=== PATIENT | male | born 1990 | race Caucasian/White ===

== ENCOUNTER 2020-10-11 14:08 | Emergency (ER) | payer MEDICAID, OTHER ==
[~2020-10-11] VITALS: Ht 188 cm; Wt 113.6 kg
[~2020-10-11 14:08] MED LIST: ERGO400T7 PO; GABA300C PO; HALO5TAB2 PO; TOPI100T37 PO; TRAZ150 PO; TRIH2TAB3 PO; ZOLP-280 PO
[2020-10-11 17:20] LABS: BASOPHILS % (AUTO) 0.5 % (0.0-2.0); EOSINOPHILS % (AUTO) 0.9 % (1.0-6.0); HEMATOCRIT 47.5 % (41-53); HEMOGLOBIN 15.4 g/dL (13.5-17.5); LYMPHOCYTES # (AUTO) 2.2 K/uL (1.0-4.8); LYMPHOCYTES % (AUTO) 29.4 % (22.0-44.0); MEAN CORPUSCULAR HEMOGLOBIN 30.6 pg (26.0-34.0); MEAN CORPUSCULAR HGB CONC 32.4 G/dL (31.0-37.0); MEAN CORPUSCULAR VOLUME 94 fL (80-100); MONOCYTES # (AUTO) 0.5 K/uL (0.1-1.0); MONOCYTES % (AUTO) 6.8 % (2.0-9.0); NEUTROPHILS # (AUTO) 4.7 K/uL (1.8-7.7); NEUTROPHILS % (AUTO) 62.4 % (40.0-70.0); PLATELET COUNT (AUTO) 183 K/uL (150-450); RED BLOOD CELL COUNT(AUTO) 5.03 MIL/uL (4.50-5.90); RED CELL DISTRIBUTION WIDTH 14.6 % (11.5-14.5)
[2020-10-11 17:30] LABS: ANION GAP 12 mmol/L (8-16); CALCIUM, TOTAL 9.2 mg/dL (8.8-10.5); CARBON DIOXIDE 24 mmol/L (22-29); CHLORIDE 108 mmol/L (98-107); CREATININE 1.34 mg/dL (0.60-1.30); GLOMERULAR FILTR. RATE CALC > 60 mL/min (>60); GLUCOSE,RANDOM 124 mg/dL (70-110); POTASSIUM 3.7 mmol/L (3.5-5.1); SODIUM SERUM 144 mmol/L (136-145); UREA NITROGEN, BLOOD 10 mg/dL (7-18)
[2020-10-11 17:35] LABS: ALANINE AMINOTRANSFERASE 41 U/L (12-78); ALBUMIN 3.8 g/dL (3.4-5.0); ALKALINE PHOSPHATASE 117 U/L (46-116); ASPARTATE AMINOTRANSFERASE 16 U/L (15-37); BILIRUBIN,TOTAL 0.6 mg/dL (0.1-1.0)
[2020-10-11] MEDS ORDERED: ERGO400T7 PO (18:24)
[2020-10-11] MEDS ORDERED: DiphenhydrAMINE HCL 25 MG CAPSULE PO ONE (18:30)
[2020-10-11] MEDS ORDERED: HALOPERIDOL 5 MG TABLET PO ONE ×2 (18:30)
[2020-10-11] MEDS ORDERED: LORazepam 2 MG/ML VIAL IM ONE (18:30)
[2020-10-11 19:35] VITALS: BP 124/85
[2020-10-11] MEDS ORDERED: TRAZ-257 PO (20:28)
[2020-10-11] MEDS ORDERED: LORA-1000 PO (20:29)
[2020-10-11] MEDS ORDERED: CHLO100T31 PO (20:31)
== END 2020-10-11 20:40 | disposition home or self-care (01) ==
LOC: EMS 14:22
DX: F69 Unspecified disorder of adult personality and behavior (principal); R44.0 Auditory hallucinations; F31.9 Bipolar disorder, unspecified; E11.9 Type 2 diabetes mellitus without complications; I10 Essential (primary) hypertension
CPT/HCPCS: 80053; 85025; 96372; 99284; G0480; J2060

== ENCOUNTER 2020-10-22 19:13 | Emergency (ER) | payer OTHER ==
[~2020-10-22] VITALS: Ht 188 cm; Wt 114.0 kg
[~2020-10-22 19:13] MED LIST changes: +CHLO100T31 PO; +LORA-1000 PO; +TRAZ-257 PO
[2020-10-22] MEDS ORDERED: HALOPERIDOL 5 MG TABLET PO ONE (21:00)
[2020-10-22 22:00] VITALS: BP 117/85
== END 2020-10-22 22:25 | disposition home or self-care (01) ==
LOC: EMS 19:17
DX: F20.9 Schizophrenia, unspecified (principal); F31.9 Bipolar disorder, unspecified; E11.9 Type 2 diabetes mellitus without complications; I10 Essential (primary) hypertension
CPT/HCPCS: 99284; Z7502; Z7610